=== PATIENT | male | born 1950 | race Native Hawaiian/Other Pacific Islander ===

== ENCOUNTER 2017-11-16 14:41 | Observation (INO) | payer OTHER ==
[~2017-11-16] VITALS: Ht 185.4 cm; Wt 89.5 kg
[2017-11-16] VITALS (7 sets, daily range): BP systolic 139–184; BP diastolic 65–101; TEMP 98–98.4; Ht 185.4 cm; Wt 89.5 kg
[2017-11-16 15:59] LABS: PLATELET COUNT 181 K/uL (142-355)
[2017-11-16 16:09] LABS: PARTIAL THROMBOPLASTIN TIME 25.6 SECONDS (24.5-33.6); POTASSIUM 3.8 mmol/L (3.6-5.2); SODIUM 140 mmol/L (136-145)
[2017-11-17] VITALS: BP 118/72; TEMP 98.6
[2017-11-17 04:00] VITALS: BP 145/82; TEMP 98.6
[2017-11-17 05:51] LABS: PLATELET COUNT 162 K/uL (142-355)
[2017-11-17 06:10] LABS: POTASSIUM 3.8 mmol/L (3.6-5.2)
[2017-11-17 08:00] VITALS: BP 144/85; TEMP 98.8
--- NOTE | 2017-11-17 13:39 | NUR ---
IV D/C'D PER DOCTORS ORDERS. DISCHARGE INSTRUCTIONS GIVEN. PT IS FOLLOW UP WITH HIS PCP IN ONE WEEK. NO ADDITIONAL MEDICATIONS PRESCRIBED. PT LEFT VIA WC. PTS EXSPOUSE AT SIDE. NAD NOTED.
== END 2017-11-17 13:35 | disposition home or self-care (01) ==
LOC: ED 14:41 → MED/SURG 18:00
PROVIDERS: ADMIT Family Medicine
DX: R07.89 Other chest pain (principal); E16.1 Other hypoglycemia; R47.81 Slurred speech
CPT/HCPCS: 36415; 80053; 82550; 82553; 84484; 85027; 85610; 85730; 93005; 96365; 96366; 99220; 99283; G0378

== ENCOUNTER 2017-12-15 12:59 | Outpatient (CLI) | payer OTHER | END 2017-12-15 23:25 | disposition home or self-care (01) | LOC: MRI 12:59 | DX: F80.1 Expressive language disorder (principal) | CPT/HCPCS: A9576 ==

== ENCOUNTER 2018-01-15 12:09 | Outpatient (CLI) | payer OTHER | END 2018-01-15 19:57 | disposition home or self-care (01) | LOC: MRI 12:09 | DX: I63.9 Cerebral infarction, unspecified (principal); R47.89 Other speech disturbances ==